=== PATIENT | male | born 1975 | race Caucasian/White ===

== ENCOUNTER 2016-08-13 23:35 | Emergency (ER) | payer BC ==
[2016-08-13 23:49] VITALS: BP 134/90
[2016-08-14] MEDS ORDERED: Penicillin V Potassium 500 MG Tab PO ONE (00:18)
[2016-08-14] MEDS ORDERED: Naproxen 500 MG Tab PO ONE (00:19)
--- NOTE | 2016-08-14 00:22 | EDM.PDOC ---
ED HPI ENT - General Chief Complaint: ENT Problem Stated Complaint: TOOTH PAIN Time Seen by Provider: 08/13/16 23:54 Source of Information: Reports: Patient, RN notes reviewed History Limitations: Reports: No limitations - History of Present Illness INITIAL COMMENTS - FREE TEXT/NARRATIVE: The patient states that he broke a left lower molar around 23:00 tonight, while eating pizza. He states that he did not have any problems with that tooth prior to it breaking. The patient states that he is visiting this area from [place]. The patient smells of alcohol. He stated that he had 2 glasses of wine tonight. - Related Data Allergies/ADRs: Allergies Allergy/AdvReac Type Severity Reaction Status Date / Time aspirin Allergy Cannot Verified 08/13/16 23:46 Remember Penicillins Allergy Cannot Verified 08/13/16 23:46 Remember Home Meds: Home Meds Naproxen 1 tab PO Q12H #20 tablet 08/14/16 [Rx] Penicillin V Potassium [IJD: Penicillin V Potassium] 1 tab PO Q6H #40 tab [Rx] Past Medical History Gastrointestinal History: Reports: Diverticulosis Musculoskeletal History: Reports: Fracture (mandible) Psychiatric History: Reports: Anxiety - Past Surgical History HEENT Surgical History: Reports: Other (see below) (Mandible plate 1992) GI Surgical History: Reports: Other (see below) (Abdominal drain for diverticulitis around 2011) Social & Family History - Tobacco Use Smoking Status *Q: Current Every Day Smoker Years of Tobacco use: 19 Packs/Tins Daily: 1 - Alcohol Use Alcohol Use History: Yes Alcohol Use Frequency: Socially - Recreational Drug Use Recreational Drug Use: No - Living Situation & Occupation Living situation: Reports: , with significant other (Girlfriend and her 3 kids) 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) ED ROS ENT - Review of Systems Review Of Systems: See Below Constitutional: Reports: no symptoms HEENT: Reports: No symptoms Respiratory: Reports: No Symptoms Cardiovascular: Reports: No symptoms Endocrine: Reports: no symptoms GI/Abdominal: Reports: No symptoms : Reports: no symptoms Musculoskeletal: Reports: no symptoms Skin: Reports: no symptoms Neurological: Reports: No Symptoms Psychiatric: Reports: No symptoms Hematologic/Lymphatic: Reports: no symptoms Immunologic: Reports: no symptoms ED EXAM, ENT - Physical Exam Exam: See Below Exam Limited By: No limitations General Appearance: alert, WD/WN, no apparent distress, other (Disheveled. Smells of alcohol.) Eye Exam: bilateral eye: EOMI, normal inspection Ears: normal external exam, normal canal, hearing grossly normal, normal TMs Nose: normal inspection, normal mucousa, no blood Mouth/Throat: Normal inspection, Normal lips, Normal oropharynx, Other (Teeth #1 , 2 absent. Tooth #3 deeply carious. Teeth #5, 6 carious. Teeth #6, 7 absent. Teeth #10, 11 absent. Tooth #15 deeply carious. Teeth number 16, 17 absent. Teeth #18, 19 (the teeth of concern) deeply carious. Tooth #27 with advanced decay. Tooth #28 carious. Tooth #29 with advanced decay. Teeth #30, 31 absent. Tooth #32 present.) Head: atraumatic, normocephalic Neck: normal inspection, supple, non-tender, full range of motion. No: lymphadenopathy (L), lymphadenopathy (R) Course - Vital Signs Last Recorded V/S: Last Vital Signs Temp 37.1 C 08/13/16 23:46 Pulse 108 H 08/13/16 23:46 Resp 18 08/13/16 23:46 BP 134/90 08/13/16 23:46 Pulse Ox 93 L 08/13/16 23:46 - Orders/Labs/Meds Meds: Medications Discontinued Medications Generic Name Dose Route Start Last Admin Trade Name Quangq PRN Reason Stop Dose Admin Naproxen 500 mg 08/14/16 00:19 08/14/16 00:30 Naprosyn PO 08/14/16 00:20 500 mg ONETIME ONE Administration Penicillin V Potassium 500 mg 08/14/16 00:18 08/14/16 00:30 Veetids PO 08/14/16 00:19 500 mg ONETIME ONE Administration - Re-Assessments/Exams Free Text/Narrative Re-Assessment/Exam: 08/14/16 00:15 The patient has advanced dental decay. I am not convinced that he broke his tooth just an hour ago - I see no evidence of a tooth fracture. Further, the patient reports no chronic medical issues, yet the [place] PMPi indicates that he has filled 20 prescriptions for narcotics by 9 prescribers since May 2014, suggesting drug-seeking behavior. Additionally, the patient is clinically intoxicated. For today's purposes, I will prescribe oral penicillin and naproxen. Since the patient is from out of town, I will give him written prescriptions. The patient lists penicillin as an allergy, but says that he was told that he is allergic to it by his mother, and that he does not recall having an adverse reaction. Additionally, the patient states that he has taken amoxicillin in the past without difficulty. Similarly, the patient was told by his mother that he is allergic to aspirin, but he is currently taking ibuprofen without difficulty. Departure - Departure Time of Disposition: 00:18 Disposition: Home, Self-Care 01 Condition: good Clinical Impression: Dental decay, Drug-seeking behavior Prescriptions: Naproxen 1 tab PO Q12H #20 tablet Penicillin V Potassium [IJD: Penicillin V Potassium] 1 tab PO Q6H #40 tab Instructions: Dental Caries, [id number] Referrals: PCP,None [Primary Care Provider] - Forms: ED Department Discharge Additional Instructions: You were seen in the emergency room for lower left dental pain. On examination, you have extensive dental decay. You may have an infection of this area. You have been started on the antibiotic penicillin. Take one tablet every 6 hours, as prescribed. Finish the entire prescription unless told otherwise by a dentist. You have been started on the pain medicine naproxen. Take one tablet every 12 hours, with food, as prescribed. It is IMPERATIVE that you see a dentist. If any other problems, please do not hesitate to return to the ER.
== END 2016-08-14 00:34 | disposition home or self-care (01) ==
LOC: JD.ED 23:35 → MERGE 23:35 → JD.ED 08-14 00:34
DX: K02.9 Dental caries, unspecified (principal); Z76.5 Malingerer [conscious simulation]; F41.9 Anxiety disorder, unspecified; F17.210 Nicotine dependence, cigarettes, uncomplicated; Z98.890 Other specified postprocedural states; Z88.0 Allergy status to penicillin; Z88.6 Allergy status to analgesic agent
CPT/HCPCS: 99283; A9270